=== PATIENT | female | born 1975 | race Caucasian/White ===

== ENCOUNTER 2017-12-13 15:10 | Inpatient (IN) | payer OTHER ==
[~2017-12-13] VITALS: Ht 175.3 cm; Wt 91.8 kg
[2017-12-13] VITALS (11 sets, daily range): BP systolic 137–203; BP diastolic 78–104; PULSE 58–99; RESP 13–22; TEMP 97.9–98.4; O2SAT 95–100
[2017-12-13] MEDS ORDERED: CYCL5TAB PO (15:55)
[2017-12-13] MEDS ORDERED: KETO10 PO (15:55)
[2017-12-13] MEDS ORDERED: METO10TA PO (15:55)
[2017-12-13] MEDS ORDERED: TOPI50TA7 PO (15:55)
[2017-12-13] MEDS ORDERED: BUTA1CAP PO (15:55)
[2017-12-13] MEDS ORDERED: PROPOFOL 200 MG/20 ML AMP IV ONE (16:15)
[2017-12-13] MEDS ORDERED: HYDROmorphone HCL PF 1 MG/ML VIAL IV PUSH ONE (16:15)
--- NOTE | 2017-12-13 16:32 | PD ---
HPI Chief Complaint: Headache Time Seen by Provider: 15:59 Travel History International Travel<30 days: No Contact w/Intl Traveler<30days: No Traveled to known affect area: No History of Present Illness HPI 42-year-old female complains of headache. She has had a headache essentially continuously for about 7 weeks. She has been admitted to inpatient medical care at outside hospitals and has received some benefit from Compazine and Toradol. Still the headache is essentially generalized with some involvement to the neck and now continues for 1 week and severe. The patient reports insomnia due to cephalgia severity of the pain. She is followed with neurology and undergone CT of the head and MRI of the head all of which is been normal. Her primary care doctor called ahead noting the patient has developed suicidal ideations due to the continuous pain. [facility] Past Medical History Anxiety: Yes Diminished Hearing: Yes (VERTIGO/ALTERED HEARING SINCE MIGRAINES STARTED IN OCTOBER 2017) Headaches: Yes Migraines: Yes ?: Not LMP: 12/02/17 Past Surgical History Cholecystectomy: Yes Gynecologic Surgery: Yes (MYOMECTOMY) Other Surgery: Yes (OVARIAN CYST REMOVED/ MYOMECTOMY) Social History Alcohol Use: No Tobacco Use: No Substance Use: No Allergies-Medications (Allergen,Severity, Reaction): Coded Allergies: fentanyl (Verified Allergy, Severe, 12/13/17) latex (Verified Allergy, Severe, Rash, 12/13/17) tramadol (Verified Allergy, Severe, Twitching, 12/13/17) TREMORS Reported Meds & Prescriptions Reported Meds & Active Scripts Active Reported Topiramate 50 Mg Tab 50 Mg PO HS Flexeril (Cyclobenzaprine HCl) 5 Mg Tab 5 Mg PO BID Metoclopramide (Metoclopramide HCl) 10 Mg Tab 10 Mg PO BID Ketorolac (Ketorolac Tromethamine) 10 Mg Tab 10 Mg PO TID Fioricet (Oftmyjebpk-Buskmbybmpqjf-Cczvxaiq) 50-300-40 Mg Cap 2 Cap PO Q4H PRN Review of Systems Except as stated in HPI: all other systems reviewed are Neg General / Constitutional: No: Fever Physical Exam Narrative GENERAL: 42 F moderate distress WNWD Vital Signs Date Time Temp Pulse Resp B/P (MAP) Pulse Ox O2 Delivery O2 Flow Rate FiO2 12/13/17 16:00 98 Room Air 12/13/17 16:00 74 14 158/103 (121) 99 Room Air 12/13/17 15:35 98.4 99 22 203/104 (137) 100 SKIN: Warm and dry. HEAD: Atraumatic. Normocephalic. EYES: Pupils equal and round. No scleral icterus. No injection or drainage. ENT: No nasal bleeding or discharge. Mucous membranes pink and moist. NECK: Trachea midline. No JVD. CARDIOVASCULAR: Regular rate and rhythm. RESPIRATORY: No accessory muscle use. Clear to auscultation. Breath sounds equal bilaterally. GASTROINTESTINAL: Abdomen soft, non-tender, nondistended. Hepatic and splenic margins not palpable. MUSCULOSKELETAL: Extremities without clubbing, cyanosis, or edema. No obvious deformities. NEUROLOGICAL: Awake and alert. No obvious cranial nerve deficits. Motor grossly within normal limits. Five out of 5 muscle strength in the arms and legs. Normal speech. PSYCHIATRIC: Appropriate mood and affect; insight and judgment normal. Data Data Last Documented VS Vital Signs Date Time Temp Pulse Resp B/P (MAP) Pulse Ox O2 Delivery O2 Flow Rate FiO2 12/13/17 18:00 60 14 165/91 (115) 97 Room Air 12/13/17 17:02 2.00 12/13/17 15:35 98.4 Orders Orders Complete Blood Count With Diff (12/13/17 15:59) Basic Metabolic Panel (Bmp) (12/13/17 15:59) Ecg Monitoring (12/13/17 15:59) Iv Access Insert/Monitor (12/13/17 15:59) Oximetry (12/13/17 15:59) Hydromorphone Pf Inj (Dilaudid Pf Inj) (12/13/17 16:15) Propofol 200 Mg/20 Ml Inj (Diprivan 200 (12/13/17 16:15) Hydromorphone Pf Inj (Dilaudid Pf Inj) (12/13/17 16:35) Ondansetron Inj (Zofran Inj) (12/13/17 16:42) Hydromorphone Pf Inj (Dilaudid Pf Inj) (12/13/17 17:00) Ondansetron Inj (Zofran Inj) (12/13/17 17:00) Consent (12/13/17 17:30) ^ Have Supplies At Bedside (12/13/17 17:30) Westergren Sedimentation Rate (12/13/17 17:43) Admit Order (Ed Use Only) (12/13/17 ) Vital Signs (Adult) Q4H (12/13/17 18:01) Diet Heart Healthy (12/13/17 Dinner) Activity Bed Rest (12/13/17 18:01) Notify Dr: Other (12/13/17 18:01) Labs Laboratory Tests Test 12/13/17 16:09 White Blood Count 7.9 TH/MM3 Red Blood Count 5.10 MIL/MM3 Hemoglobin 15.3 GM/DL Hematocrit 44.5 % Mean Corpuscular Volume 87.3 FL Mean Corpuscular Hemoglobin 30.0 PG Mean Corpuscular Hemoglobin Concent 34.3 % Red Cell Distribution Width 13.2 % Platelet Count 348 TH/MM3 Mean Platelet Volume 7.8 FL Neutrophils (%) (Auto) 59.4 % Lymphocytes (%) (Auto) 31.1 % Monocytes (%) (Auto) 7.9 % Eosinophils (%) (Auto) 1.1 % Basophils (%) (Auto) 0.5 % Neutrophils # (Auto) 4.7 TH/MM3 Lymphocytes # (Auto) 2.4 TH/MM3 Monocytes # (Auto) 0.6 TH/MM3 Eosinophils # (Auto) 0.1 TH/MM3 Basophils # (Auto) 0.0 TH/MM3 CBC Comment DIFF FINAL Differential Comment Erythrocyte Sedimentation Rate 1 mm/hr Blood Urea Nitrogen 10 MG/DL Creatinine 0.70 MG/DL Random Glucose 82 MG/DL Calcium Level 9.1 MG/DL Sodium Level 141 MEQ/L Potassium Level 3.7 MEQ/L Chloride Level 109 MEQ/L Carbon Dioxide Level 21.4 MEQ/L Anion Gap 11 MEQ/L Estimat Glomerular Filtration Rate 91 ML/MIN MDM Medical Decision Making Medical Screen Exam Complete: Yes Emergency Medical Condition: Yes Medical Record Reviewed: Yes Differential Diagnosis migraine, ICH, anurysm Narrative Course CBC & BMP Diagram 12/13/17 16:09 Calcium Level 9.1 The patient received propofol sedation which treated her headache and for the first time 7 weeks was headache free. [place] Act form completed for the patient by request of the psychiatrist. Case discussed with Dr. Betancourt of psych who agrees [facility] psychiatry is the optimal disposition. Case discussed with Dr. Boyle for hospitalist service. Procedures Procedure Narrative After the risks and benefits were discussed the following procedure was performed: MODERATE SEDATION: The patient was placed on a perinatal instructor and pulse oximetry. An ambu bag and suction was immediately available at bedside. The patient was monitored by the nurse. Oxygen saturation , heart rate and blood pressure were monitored. Procedural sedation was acheived using propofol. The patient was observed until awake and alert. Procedural Sedation time in attendance was 15 minutes. Diagnosis Primary Impression: Intractable headache Qualified Codes: R51 - Headache Additional Impression: Suicidal ideation Admitting Information Admitting Physician Requests: Drew Post MD Dec 13, 2017 16:32
[2017-12-13] MEDS ORDERED: HYDROmorphone HCL PF 2 MG/ML VIAL ONE (16:35)
[2017-12-13] MEDS ORDERED: ONDANSETRON HCL 4 MG/2 ML VIAL ONE (16:42)
[2017-12-13 16:53] LABS: AUTOMATED NEUTROPHIL # 4.7 TH/MM3 (1.8-7.7); BASOPHIL % 0.5 % (0.0-2.0); EOSINOPHIL # 0.1 TH/MM3 (0-0.4); EOSINOPHIL % 1.1 % (0.0-4.0); HEMATOCRIT 44.5 % (35.0-46.0); HEMOGLOBIN 15.3 GM/DL (11.6-15.3); LYMPH % 31.1 % (9.0-44.0); LYMPHOCYTE # 2.4 TH/MM3 (1.0-4.8); MEAN CELL VOLUME 87.3 FL (80.0-100.0); MEAN CORPUSCULAR HGB CONC 34.3 % (32.0-36.0); MEAN PLATELET VOLUME 7.8 FL (7.0-11.0); MONO % 7.9 % (0.0-8.0); MONOCYTE # 0.6 TH/MM3 (0-0.9); NEUT % 59.4 % (16.0-70.0); PLATELET COUNT 348 TH/MM3 (150-450); RED CELL DISTRIBUTION WIDTH 13.2 % (11.6-17.2); WHITE BLOOD COUNT 7.9 TH/MM3 (4.0-11.0)
[2017-12-13] MEDS ORDERED: ONDANSETRON HCL 4 MG/2 ML VIAL IV PUSH ONE (17:00)
[2017-12-13] MEDS ORDERED: HYDROmorphone HCL PF 2 MG/ML VIAL IV PUSH ONE (17:00)
[2017-12-13 17:22] LABS: BICARBONATE 21.4 MEQ/L (21.0-32.0); CALCIUM 9.1 MG/DL (8.5-10.1); CREATININE 0.7 MG/DL (0.50-1.00)
[2017-12-13] MEDS ORDERED: ACETAMIN 325 MG/BUTALBITAL 50 MG/CAFFEINE 40 MG TAB PO PRN (22:00)
[2017-12-13] MEDS ORDERED: ACETAMINOPHEN 325 MG TAB PO PRN (22:00)
[2017-12-13] MEDS: METOCLOPRAMIDE HCL 10 MG TAB PO SCH (22:00)
[2017-12-13] MEDS ORDERED: MAGNESIUM HYDROXIDE SUSP 30 ML CUP PO PRN (22:00)
[2017-12-13] MEDS ORDERED: ALUMINUM/MAGNESIUM/SIMETH 30 ML CUP PO PRN (22:00)
[2017-12-13] MEDS: CYCLOBENZAPRINE HCL 10 MG TAB PO SCH (22:00)
[2017-12-13] MEDS ORDERED: PILL SPLITTER OTHER PRN (22:45)
[2017-12-14 01:04] VITALS: BP 126/73; PULSE 68
[2017-12-14 04:27] VITALS: BP 132/65; PULSE 65; RESP 16; TEMP 98.5; O2SAT 98
[2017-12-14] MEDS: METOCLOPRAMIDE HCL 10 MG TAB PO SCH ×2 (09:00→21:00)
[2017-12-14] MEDS: CYCLOBENZAPRINE HCL 10 MG TAB PO SCH ×2 (09:00→21:00)
[2017-12-14] MEDS: KETOROLAC TROMETHAMINE 10 MG TAB PO SCH ×3 (09:00→17:26)
--- NOTE | 2017-12-14 13:22 | PD.CONS ---
HPI Service [facility] Hospitalists Consult Requested By Psychiatry Reason for Consult Headache Primary Care Physician Unknown Diagnoses: History of Present Illness Ms. Packer is a pleasant 42-year-old female with no significant medical history who was admitted to the hospital due to headache. Due to significant headaches she also expressed suicidal ideations. Patient was subsequently admitted to med psych unit. She also complains of dizziness along with headache. Her headache has been persistent despite multiple outpatient and inpatient therapy. Due to headache she is unable to sleep and has not slept well in 7-10 days. She denies any chest pain, cough, shortness of breath , fever or chills. She also complains of left wrist pain which is better after she received Toradol. Denies any injury to her wrist. Palpation she underwent CT and MRI study of her head at an outside facility and her workup was unremarkable. Hospitalist service was consulted as well as neurology for further evaluation. Review of Systems Except as stated in HPI: all other systems reviewed are Neg Past Family Social History Allergies: Coded Allergies: fentanyl (Verified Allergy, Severe, 12/13/17) latex (Verified Allergy, Severe, Rash, 12/13/17) tramadol (Verified Allergy, Severe, Twitching, 12/13/17) TREMORS Past Medical History Anxiety, migraine headache Past Surgical History Myomectomy, oophorectomy, cholecystectomy Reported Medications Topiramate 50 Mg Tab 50 Mg PO HS Flexeril (Cyclobenzaprine HCl) 5 Mg Tab 5 Mg PO BID Metoclopramide (Metoclopramide HCl) 10 Mg Tab 10 Mg PO BID Ketorolac (Ketorolac Tromethamine) 10 Mg Tab 10 Mg PO TID Fioricet (Tkyerfrncw-Glufgcskyudot-Viollzfd) 50-300-40 Mg Cap 2 Cap PO Q4H PRN Family History Father diagnosed with lung cancer. He also has a history of prostate cancer. Social History Denies using alcohol, tobacco, illicit drugs. Physical Exam Vital Signs Vital Signs Date Time Temp Pulse Resp B/P (MAP) Pulse Ox O2 Delivery O2 Flow Rate FiO2 12/14/17 04:27 98.5 65 16 132/65 (87) 98 12/14/17 01:04 68 126/73 (90) 12/13/17 21:46 97.9 61 16 137/78 (97) 99 12/13/17 19:55 12/13/17 19:21 70 16 155/87 (109) 99 Room Air 12/13/17 18:15 62 14 167/100 (122) 98 Room Air 12/13/17 18:00 60 14 165/91 (115) 97 Room Air 12/13/17 17:45 58 14 156/90 (112) 96 Room Air 12/13/17 17:30 60 14 164/91 (115) 96 Room Air 12/13/17 17:03 58 14 138/80 (99) 95 Room Air 12/13/17 17:02 98 2.00 12/13/17 17:02 98 Nasal Cannula 2.00 12/13/17 17:02 12 12/13/17 17:02 98 12/13/17 16:47 61 13 163/84 (110) 100 Nasal Cannula 3.00 12/13/17 16:00 98 Room Air 12/13/17 16:00 74 14 158/103 (121) 99 Room Air 12/13/17 15:35 98.4 99 22 203/104 (137) 100 Physical Exam GENERAL: This is a well-nourished, well-developed patient, in no apparent distress. SKIN: No rashes, ecchymoses or lesions. Warm and dry. HEAD: Atraumatic. Normocephalic. No temporal or scalp tenderness. EYES: Pupils equal round and reactive. No injection or drainage. ENT: Nose without bleeding, purulent drainage or septal hematoma. Airway patent. NECK: Trachea midline. No lymphadenopathy. Supple, nontender, no meningeal signs. CARDIOVASCULAR: Regular rate and rhythm without murmurs, gallops, or rubs. No JVD. RESPIRATORY: Clear to auscultation. Breath sounds equal bilaterally. No wheezes , rales, or rhonchi. GASTROINTESTINAL: Abdomen soft, non-tender, nondistended. No guarding. MUSCULOSKELETAL: Extremities without clubbing, cyanosis, or edema. NEUROLOGICAL: Awake and alert. Cranial nerves II through XII intact. No focal neurological deficits. Normal speech. Laboratory Laboratory Tests Test 12/13/17 16:09 White Blood Count 7.9 Red Blood Count 5.10 Hemoglobin 15.3 Hematocrit 44.5 Mean Corpuscular Volume 87.3 Mean Corpuscular Hemoglobin 30.0 Mean Corpuscular Hemoglobin Concent 34.3 Red Cell Distribution Width 13.2 Platelet Count 348 Mean Platelet Volume 7.8 Neutrophils (%) (Auto) 59.4 Lymphocytes (%) (Auto) 31.1 Monocytes (%) (Auto) 7.9 Eosinophils (%) (Auto) 1.1 Basophils (%) (Auto) 0.5 Neutrophils # (Auto) 4.7 Lymphocytes # (Auto) 2.4 Monocytes # (Auto) 0.6 Eosinophils # (Auto) 0.1 Basophils # (Auto) 0.0 CBC Comment DIFF FINAL Differential Comment Erythrocyte Sedimentation Rate 1 Blood Urea Nitrogen 10 Creatinine 0.70 Random Glucose 82 Calcium Level 9.1 Sodium Level 141 Potassium Level 3.7 Chloride Level 109 Carbon Dioxide Level 21.4 Anion Gap 11 Estimat Glomerular Filtration Rate 91 Beta HCG, Qualitative 2 Result Diagram: 12/13/17 1609 12/13/17 1609 Assessment and Plan Problem List: (1) Intractable headache ICD Code: R51 - Headache Status: Acute (2) Left wrist pain ICD Code: M25.532 - Pain in left wrist (3) Suicidal ideation ICD Code: R45.851 - Suicidal ideations Status: Acute Assessment and Plan Ms. Packer is a 42-year-old female who was admitted to [facility] due to suicidal ideations that stemmed from intractable headache. Despite evaluation by outpatient and inpatient physicians, her headache still is very persistent. She additionally complains of left wrist pain. Neurology and hospitalist service were consulted. Intractable headache -No previous history of headache. Palpation CT and MRI studies of the brain were unremarkable at an outside facility. -Neurology consult pending. Patient may need further workup including spinal imaging as well as possibly LP. -Currently she has Flexeril, Toradol, furosemide as needed. -Continue Topamax 50 mg nightly Insomnia -patient will receive Seroquel 50 mg nightly and Restoril 7.5 mg nightly. Suicidal ideations -likely due to headache. Continue treatment per psychiatry. Full code. Ambulation. Thank you for the consult. We will continue to follow this patient with you. Problem Qualifiers (1) Intractable headache: Qualified Codes: R51 - Headache Edwin Hendricks DO December 14, 2017 1:22 pm
--- NOTE | 2017-12-14 13:53 | PD.CONS ---
History of Present Illness Service Neurology Consult Requested By psychiatry Reason for Consult chronic migraines Primary Care Physician Unknown History of Present Illness 42 y/o female who has had monthly opthalmic migraines for the last 8-10 years, lasting about 20 minutes. Would involve scotoma in the right eye. In early October she had an episode of Vertigo while on a conference call and then persistent dizziness. She notes that about a week later she began having severe headache. She also had numbness involving her face. She was seen by a neurologist and had a negative CT and MRI of the head. She had trial of Imitrex during the migraine without benefit. She was started on Topamax. This week she was to increase from 50mg bid to 100mg bid. No side effects but no benefit on the Topamax. She has not tried any other preventative medications for her migraines. Reports pain was so severe it caused insomnia. Also associated nausea. She has tried Toradol and Fioricet without benefit. No recent illness. No benefit with Medrol dose pack, felt it worsened headache. No benefit with Fentanyl. [place] Trazodone worsened her headache as well. She reports she has lost about 25lbs in the last 6 weeks due to her headache. Notes blurred vision in the right eye with pressure behind the left eye. Reports she began having suicidal thoughts due to lack of sleep and has been admitted to psychiatry. Reports PCP checked thyroid recently and labs were WNL. Nurse states they are obtaining records from her neurologist, PCP and previous hospital stay (Norma Boyle) Review of Systems Constitutional: Fatigue Eye: Blurring Respiratory: Negative except HPI Cardiovascular: Negative except HPI Gastrointestinal: Nausea, Vomitting Cipriano/Lymph: Negative except HPI Musculoskeletal: Negative except HPI Neurologic: Numbness, Tingling, Headache Psychiatric: Depression, Suicidal All other ROS: ROS reviewed as documented in chart (Norma Boyle) Past Family Social History Allergies: Coded Allergies: fentanyl (Verified Allergy, Severe, 12/13/17) latex (Verified Allergy, Severe, Rash, 12/13/17) tramadol (Verified Allergy, Severe, Twitching, 12/13/17) TREMORS Past Medical History opthalmic migraines, anxiety, depression, insomnia Past Surgical History cholecystectomy, gynecological surgeries Active Ordered Medications Current Medications Medications (Trade) Dose Ordered Sig/Zackery Route Start Time Stop Time Status Last Admin (Tylenol) 650 mg Q4H PRN PO 12/13/17 22:00 12/13/17 22:44 (Milk Of Magnesia Liq) 30 ml DAILY PRN PO 12/13/17 22:00 (Mag-Al Plus Susp Liq) 30 ml Q6H PRN PO 12/13/17 22:00 (Fioricet 325-50-40) 2 tab Q4H PRN PO 12/13/17 22:00 12/14/17 01:45 (Flexeril) 5 mg BID PO 12/13/17 22:00 12/14/17 09:00 (Toradol) 10 mg TID PO 12/14/17 09:00 12/14/17 13:00 (Reglan) 10 mg BID PO 12/13/17 22:00 (Topamax) 50 mg HS PO 12/14/17 21:00 (Pill Splitter) 1 ea UNSCH PRN OTHER 12/13/17 22:45 (SEROquel) 50 mg HS PO 12/14/17 21:00 (Restoril) 7.5 mg HS PRN PO 12/14/17 12:00 (Topamax) 50 mg DAILY PO 12/14/17 13:30 UNV (Topamax) 100 mg HS NEB PO 12/14/17 21:00 UNV Family History noncontributory Social History former smoker, rare alcohol (Norma Boyle) Exam I&O / VS Vital Signs Date Time Temp Pulse Resp B/P (MAP) Pulse Ox O2 Delivery O2 Flow Rate FiO2 12/14/17 04:27 98.5 65 16 132/65 (87) 98 12/14/17 01:04 68 126/73 (90) 12/13/17 21:46 97.9 61 16 137/78 (97) 99 12/13/17 19:55 12/13/17 19:21 70 16 155/87 (109) 99 Room Air 12/13/17 18:15 62 14 167/100 (122) 98 Room Air 12/13/17 18:00 60 14 165/91 (115) 97 Room Air 12/13/17 17:45 58 14 156/90 (112) 96 Room Air 12/13/17 17:30 60 14 164/91 (115) 96 Room Air 12/13/17 17:03 58 14 138/80 (99) 95 Room Air 12/13/17 17:02 98 2.00 12/13/17 17:02 98 Nasal Cannula 2.00 12/13/17 17:02 12 12/13/17 17:02 98 12/13/17 16:47 61 13 163/84 (110) 100 Nasal Cannula 3.00 12/13/17 16:00 98 Room Air 12/13/17 16:00 74 14 158/103 (121) 99 Room Air 12/13/17 15:35 98.4 99 22 203/104 (137) 100 General: Alert and Oriented, No acute distress Eye: PERRL, EOMI Respiratory: Non-labored respirations Cardiology: Normal rate Musculoskeletal: ROM Exam Comments eomi, no nystagmus, perrl, no temporal artery tenderness, f-n-f intact, coordination normal, muscle strength 5/5, no drift, no focal deficit, gait withheld (Norma Boyle) Review/Management Diagnosis/Plan: (1) Migraine aura, persistent, intractable ICD Codes: G43.519 - Persistent migraine aura without cerebral infarction, intractable, without status migrainosus Status: Chronic Plan: requesting MRI from previous hospital stay will set up MRA/MRV consider LP with opening pressure increase Topamax to 50mg qam and 100mg qhs (2) Insomnia ICD Codes: G47.00 - Insomnia, unspecified Status: Chronic Plan: psychiatry has started Temazepam and Seroquel could consider trial of Pamelor for both migraines and sleep (3) Dizziness ICD Codes: R42 - Dizziness and giddiness Plan: MRA, MRV ordered vertigo may be related to migraine aura consider eval by PT (4) Intractable headache ICD Codes: R51 - Headache Status: Acute Plan: ESR 1 MRA/MRV consider LP with opening pressure (Norma Boyle) Diagnosis/Plan: (1) Migraine aura, persistent, intractable ICD Codes: G43.519 - Persistent migraine aura without cerebral infarction, intractable, without status migrainosus Status: Chronic Plan: requesting MRI from previous hospital stay will set up MRA/MRV increase Topamax to 50mg qam and 100mg qhs imitrex im prn qdaily for severe migraine seen and examined. d/w PA. agree with above. chronic intractable migraines followed by an outpatient neurologist and has been hospitalized for them at [facility]. fioricet prn, imitrex injection for severe headache. will need to f/u with her neurologist after psychiatric admission for further eval/tx and consideration of botox. chronic insomnia also likely affecting migraine in addition to depression. psych has ordered seroquel which may help sleep and her mood. (Yong Weston MD) Problem Qualifiers (1) Intractable headache: Qualified Codes: R51 - Headache Norma Boyle December 14, 2017 13:53 Yong Weston MD December 14, 2017 17:23
[2017-12-14 14:38] LABS: MAGNESIUM 2.4 MG/DL (1.5-2.5)
[2017-12-14] MEDS: LORazepam 1 MG TAB PO PRN ×2 (15:00→20:53)
[2017-12-14] MEDS: TOPIRAMATE 25 MG TAB PO SCH (15:00)
[2017-12-14 15:03] LABS: FOLATE 11.4 NG/ML (3.1-17.5)
[2017-12-14] MEDS ORDERED: GADODIAMIDE PF 287 MG/ML 20 ML VIAL (for RAD MRI) IVCONTRAST ONE (15:44)
--- NOTE | 2017-12-14 16:36 | RADRPT ---
EXAM DATE/TIME: 12/14/2017 15:28 [place] COMPARISON: No previous studies available for comparison. INDICATIONS : Vertigo. Migraine and facial numbness with nerve pain. MEDICAL HISTORY : None. SURGICAL HISTORY : Cholecystectomy. Fibroids removed. Oophrectomy. ENCOUNTER: Initial ACUITY: 1 month PAIN SCORE: 5/10 LOCATION: head. Please note a normal MRA of the brain does not entirely exclude the possibility of a small aneurysm, nor the possibility of distal intracranial vessel disease. TECHNIQUE: 3D time of flight MRA was performed. Source images, multiplanar STS MIP, and 3D volume MIP reconstru ctions were reviewed. FINDINGS: Anterior circulation: Distal intracranial internal carotid arteries are patent with flow extending to the middle and anteri or cerebral arteries. 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 There is no evidence for aneurysm, vessel tr uncation or stenosis, and no evidence for vascular malformation. Posterior circulation: Asymmetrical distal vertebral arteries with dominant left vertebral artery and flow extending to basi lar artery. Right vertebral artery appears to terminate in PICA. Patent right P-comm. There is no ev idence for aneurysm, vessel truncation or stenosis, and no evidence for vascular malformation. CONCLUSION: 1. 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 2. Otherwise, unremarkable MRA examination of the brain. Abram Carolina MD on December 14, 2017 at 16:33 Board Certified Radiologist. This report was verified electronically.
--- NOTE | 2017-12-14 16:38 | HHI.HP ---
Provisional Diagnosis Admission Date Dec 13, 2017 at 18:03 [place] I. Adjustment disorder with depressed mood Certification of Person's Competence To Provide Express and Informed Consent I have personally examined Sadia Packer , a person being served at [facility] on, December 14, 2017 16:18. Express and informed consent means consent voluntarily given in writing, by a competent person, after sufficient explanation and disclosure of the subject matter involved to enable the person to make a knowing and willful decision without any element of force, fraud, deceit, duress, or other form of constraint or coercion. This person is 18 years of age or older, is not now known to be incompetent to consent to treatment with a guardian advocate, and does not have a health care surrogate or proxy currently making medical treatment decisions. I have found this person to be one of the following: [xxx] Competent to provide express and informed consent, as defined above, for voluntary admission to this facility and is competent to provide express and informed consent for treatment. He/she has the consistent capacity to make well reasoned, willful, and knowing decisions concerning his or her medical or mental health treatment. The person fully and consistently understands the purpose of the admission for examination/placement and is fully capable of personally exercising all rights assured under [place] Incompetent to provide express and informed consent to voluntary admission, and this is incompetent to provide express and informed consent to treatment. The person must be transferred to involuntary status and a petition for a guardian advocate filed with the Circuit Court. [] Refusing to provide express and informed consent to voluntary admission but is competent to provide express and informed consent for treatment. The person must be discharged or transferred to involuntary status. Form shall be completed within 24 hours of a person's arrival at the receiving facility and filed in the clinical record of each person: 1. Admitted on a voluntary basis 2. Permitted to provide express and informed consent to his/her own treatment 3. Allowed to transfer from involuntary to voluntary status 4. Prior to permitting a person to consent to his or her own treatment after having been previously found incompetent to consent to treatment. History of Present Illness Capacity: Has Capacity HPI Patient is a 42-year-old woman, , no children, unemployed, with no formal past psychiatric history, no previous diagnoses, no previous psychiatric admissions, no previous suicide attempts or self-injurious behavior , with a past medical history significant for irretractable migraines was brought into the ED due to continuous headaches for the past several weeks and had endorse suicide ideations to her primary care doctor due to continuous pain from her headaches which patient was put under [place] act and admitted to the inpatient psychiatry for further evaluation and management. Patient was found lying on bed noted B, cooperative. Patient states that she had been having irretractable headaches since October of this year. Patient reports having had ophthalmic migraines for the past 8-10 years but the headache started in October. Patient reports having had imaging done (MRI was (which she was told was normal. Patient also mentions having had insomnia beginning around the same time along with increased anxiety due to sleep disturbance. Patient reports having been on Ambien, trazodone, diazepam which has had marginal results or intolerable side effects which is hallucinations when she took trazodone. Patient reports having had episodes of decrease sleep for as long as 3 days, mood being "very bad" feeling depressed due to the same and having had suicide ideations for the past 3 days which occur mostly at night. Patient also reports episode of depersonalization where she did not recognize himself in the mirror and also had episodes of auditory hallucinations at times which she heard singing. Patient at this time continues to endorse feeling depressed, having suicide ideations currently denying any auditory hallucinations at time of interview or delusions. Past psychiatric history: No previous psychiatric diagnoses, no psychiatric admissions, no previous suicide attempt or self-injurious behavior. No previous mental health provider services other than brief course of therapy. Substance use history: Denies Past medical history: Patient reports history of retractable migraines since October 2017. 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 Patient's collateral contacts patient's Jesse Valiente [phone]. Review of Systems Neurologic: COMPLAINS OF: Headache Except as stated in HPI: all other systems reviewed are Neg Past Psych History Violence risk - others (6 mos) Low Violence risk - self (6 mos) Low Substance Abuse History Drugs/Alcohol past 12 months Denies Past Family Social History Coded Allergies: fentanyl (Verified Allergy, Severe, 12/13/17) latex (Verified Allergy, Severe, Rash, 12/13/17) tramadol (Verified Allergy, Severe, Twitching, 12/13/17) TREMORS Reported Medications Topiramate (Topiramate) 50 Mg Tab, 50 MG PO HS for Control Seizures, #60 TAB 0 Refills 12/13/17 Cyclobenzaprine (Flexeril) 5 Mg Tab, 5 MG PO BID for Muscle Spasm, #90 TAB 0 Refills 12/13/17 Metoclopramide (Metoclopramide) 10 Mg Tab, 10 MG PO BID, TAB 0 Refills 12/13/17 Ketorolac (Ketorolac) 10 Mg Tab, 10 MG PO TID for Pain Management, TAB 0 Refills 12/13/17 Nhtusydeue-Rarcyrekbonyd-Eqpyaxyr (Fioricet) 50-300-40 Mg Cap, 2 CAP PO Q4H Y for HEADACHE, CAP 0 Refills 12/13/17 Current Medications Medications (Trade) Dose Ordered Sig/Zackery Route Start Time Stop Time Status Last Admin (Tylenol) 650 mg Q4H PRN PO 12/13/17 22:00 12/13/17 22:44 (Milk Of Magnesia Liq) 30 ml DAILY PRN PO 12/13/17 22:00 (Mag-Al Plus Susp Liq) 30 ml Q6H PRN PO 12/13/17 22:00 (Fioricet 325-50-40) 2 tab Q4H PRN PO 12/13/17 22:00 12/14/17 01:45 (Flexeril) 5 mg BID PO 12/13/17 22:00 12/14/17 09:00 (Toradol) 10 mg TID PO 12/14/17 09:00 12/14/17 13:00 (Reglan) 10 mg BID PO 12/13/17 22:00 (Pill Splitter) 1 ea UNSCH PRN OTHER 12/13/17 22:45 (SEROquel) 50 mg HS PO 12/14/17 21:00 (Restoril) 7.5 mg HS PRN PO 12/14/17 12:00 (Topamax) 50 mg DAILY PO 12/14/17 15:00 12/14/17 15:00 (Topamax) 100 mg HS PO 12/14/17 21:00 (Ativan) 1 mg Q6H PRN PO 12/14/17 14:15 12/14/17 15:00 Social History , no children, 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 Patient's collateral contacts patient' s Jesse Valiente [phone]. Patient's Strengths (min. 2) Verbal and communicative Physical Exam Vital Signs Vital Signs Date Time Temp Pulse Resp B/P (MAP) Pulse Ox O2 Delivery O2 Flow Rate FiO2 12/14/17 04:27 98.5 65 16 132/65 (87) 98 12/13/17 19:21 Room Air 12/13/17 17:02 2.00 I/O 12/14/17 12/14/17 12/15/17 08:00 16:00 00:00 Intake Total 240 ml Balance 240 ml Lab Results Test 12/14/17 13:58 Magnesium Level 2.4 MG/DL Vitamin B12 Level 637 PG/ML Folate 11.4 NG/ML Mental Status Examination Appearance: Appropriate Consciousness: Alert Orientation: x4 Speech: Unremarkable Language: Adequate Fund of Knowledge: Adequate Attention and Concentration: Adequate Memory: Unremarkable Mood: Sad Affect: Sad, Other (Tearful) Thought Process & Associations: Intact, Logical, Linear Thought Content: Hallucinations, Depersonalization Hallucination Type: Auditory Delusion Type: None Suicidal Ideation: Yes Suicidal Plan: No Suicidal Intention: No Homicidal Ideation: No Homicidal Plan: No Homicidal Intention: No Insight: Fair Judgment: Impulsive Assessment & Plan Problem List: (1) Adjustment disorder with mixed anxiety and depressed mood ICD Codes: F43.23 - Adjustment disorder with mixed anxiety and depressed mood Assessment & Plan Estimated LOS: 5-7 days. Patient is a 42-year-old woman with no previous psychiatric admission with a recent diagnosis of intractable migraines that have been ongoing which have caused patient to have disturbed sleep along with start of suicidal ideations for the past 3 days which patient was admitted to the inpatient psychiatry unit for further evaluation and management. Patient will be started on quetiapine 50 mg p.o. at bedtime to address depressed mood along with perceptual disturbances, temazepam 7.5 mg p.o. at bedtime as needed for insomnia, hospitalist input appreciated, neurology input appreciated. Patient to continue recommendations as her prior medical team and neurology configuration management consultant recommendations. Collateral information pending. Social work intervention for psychosocial assessment. Discharge planning in progress. Discharge Planning Patient return back to her residence was psychiatrically stable. Jared Wong MD December 14, 2017 16:38
--- NOTE | 2017-12-14 16:44 | RADRPT ---
EXAM DATE/TIME: 12/14/2017 15:28 COMPARISON: No previous studies available for comparison. INDICATIONS : Vertigo. Migraine and facial numbness with nerve pain. CONTRAST: 20 cc Omniscan (gadodiamide) IV MEDICAL HISTORY : None. SURGICAL HISTORY : Cholecystectomy. Fibroids removed. Oophrectomy. ENCOUNTER: Initial ACUITY: 1 month PAIN SCORE: 7/10 LOCATION: head. TECHNIQUE: 3D time of flight and postcontrast MRV was performed. Source images, multiplanar STS MIP, and 3D volu me MIP reconstructions were reviewed. FINDINGS: The visualized dural and deep venous sinuses demonstrate normal flow characteristics. No obvious veno us thrombosis is evident on this exam. CONCLUSION: 1. Unremarkable MR venogram examination. No evidence for significant venous thrombosis. Abram Carolina MD on December 14, 2017 at 16:40 Board Certified Radiologist. This report was verified electronically.
[2017-12-14 17:02] LABS: C-REACTIVE PROTEIN LESS THAN 0.29 MG/DL (0.00-0.30)
[2017-12-14] MEDS ORDERED: SUMAtriptan INJ 6 MG/0.5 ML VIAL SQ PRN (17:30)
[2017-12-14 18:12] VITALS: BP 114/56; PULSE 64; RESP 16; TEMP 98.6; O2SAT 97
[2017-12-14 18:28] LABS: HEMOGLOBIN A1C 5.1 % (4.3-6.0)
[2017-12-14] MEDS: TEMAZEPAM 7.5 MG CAP PO PRN (20:52)
[2017-12-14] MEDS: TOPIRAMATE 100 MG TAB PO SCH (20:52)
[2017-12-14] MEDS ORDERED: TOPIRAMATE 25 MG TAB PO SCH (21:00)
[2017-12-14] MEDS ORDERED: QUEtiapine FUMARATE 25 MG TAB PO SCH (21:00)
[2017-12-15 06:14] VITALS: BP 109/57; PULSE 60; RESP 15; TEMP 97.3; O2SAT 98
[2017-12-15] MEDS: KETOROLAC TROMETHAMINE 10 MG TAB PO SCH ×3 (09:05→17:37)
[2017-12-15] MEDS: CYCLOBENZAPRINE HCL 10 MG TAB PO SCH ×2 (09:06→20:51)
[2017-12-15] MEDS: METOCLOPRAMIDE HCL 10 MG TAB PO SCH ×2 (09:06→20:51)
[2017-12-15] MEDS: TOPIRAMATE 25 MG TAB PO SCH (09:11)
--- NOTE | 2017-12-15 09:37 | HHI.PR ---
Review/Management Diagnosis/Plan: (1) Migraine aura, persistent, intractable ICD Codes: G43.519 - Persistent migraine aura without cerebral infarction, intractable, without status migrainosus Status: Chronic Plan: mra/mrv- negative for any significant vascular occlusion increase Topamax to 50mg qam and 100mg qhs imitrex im prn qdaily for severe migraine chronic intractable migraines followed by an outpatient neurologist and has been hospitalized for them at [facility]. fioricet prn, imitrex injection for severe headache. will need to f/u with her neurologist after psychiatric admission for further eval/tx and consideration of botox. chronic insomnia also likely affecting migraine in addition to depression. psych has ordered seroquel which may help sleep and her mood. will follow peripherally (2) Insomnia ICD Codes: G47.00 - Insomnia, unspecified Status: Chronic Plan: psychiatry has started Temazepam and Seroquel could consider trial of Pamelor for both migraines and sleep (3) Adjustment disorder with mixed anxiety and depressed mood ICD Codes: F43.23 - Adjustment disorder with mixed anxiety and depressed mood Status: Acute Plan: per psych Subjective Subjective Comments No acute events reported less headache No chest pain No dyspnea Active Medications Current Medications Medications (Trade) Dose Ordered Sig/Zackery Route Start Time Stop Time Status Last Admin (Tylenol) 650 mg Q4H PRN PO 12/13/17 22:00 12/13/17 22:44 (Milk Of Magnesia Liq) 30 ml DAILY PRN PO 12/13/17 22:00 (Mag-Al Plus Susp Liq) 30 ml Q6H PRN PO 12/13/17 22:00 (Flexeril) 5 mg BID PO 12/13/17 22:00 12/15/17 09:06 (Toradol) 10 mg TID PO 12/14/17 09:00 12/15/17 09:05 (Reglan) 10 mg BID PO 12/13/17 22:00 12/15/17 09:06 (Pill Splitter) 1 ea UNSCH PRN OTHER 12/13/17 22:45 (SEROquel) 50 mg HS PO 12/14/17 21:00 12/14/17 20:53 (Restoril) 7.5 mg HS PRN PO 12/14/17 12:00 12/14/17 20:52 (Topamax) 50 mg DAILY PO 12/14/17 15:00 12/15/17 09:11 (Topamax) 100 mg HS PO 12/14/17 21:00 12/14/17 20:52 (Ativan) 1 mg Q6H PRN PO 12/14/17 14:15 12/14/17 20:53 (Fioricet 325-50-40) 1 tab Q4H PRN PO 12/14/17 18:00 (Imitrex Inj) 6 mg UNSCH PRN SQ 12/14/17 17:30 Allergies Allergies Coded Allergies fentanyl (Verified Allergy, Severe, 12/13/17) latex (Verified Allergy, Severe, Rash, 12/13/17) tramadol (Verified Allergy, Severe, Twitching, 12/13/17) Review of Systems Constitutional: Fatigue Eye: Blurring Respiratory: Negative except HPI Cardiovascular: Negative except HPI Gastrointestinal: Nausea, Vomitting Cipriano/Lymph: Negative except HPI Musculoskeletal: Negative except HPI Neurologic: Numbness, Tingling, Headache Psychiatric: Depression, Suicidal All other ROS: ROS reviewed as documented in chart Exam I&O / VS 12/15/17 12/15/17 12/16/17 14:59 22:59 06:59 Intake Total 240 ml Balance 240 ml Intake Oral 240 ml Vital Signs Date Time Temp Pulse Resp B/P (MAP) Pulse Ox O2 Delivery O2 Flow Rate FiO2 12/15/17 06:14 97.3 60 15 109/57 (74) 98 12/14/17 18:12 98.6 64 16 114/56 (75) 97 General: Alert and Oriented, No acute distress Eye: PERRL, EOMI Respiratory: Non-labored respirations Cardiology: Normal rate Musculoskeletal: ROM Neurologic: Alert, Oriented, No focal defects Psychiatric: Cooperative Objective Micro and Labs Laboratory Tests Test 12/14/17 13:58 Magnesium Level 2.4 C-Reactive Protein LESS THAN 0.29 Vitamin B12 Level 637 Folate 11.4 Thyroid Stimulating Hormone 3rd Gen 0.620 Yong Weston MD December 15, 2017 09:37
[2017-12-15] MEDS: LORazepam 1 MG TAB PO PRN ×2 (14:03→20:42)
--- NOTE | 2017-12-15 16:46 | HHI.PR ---
Subjective Remarks Follow-up for intractable headache, insomnia. Patient is currently doing well. She complains of persistent headache. She was able to sleep better last night. No fever or chills. Objective Vitals Vital Signs Date Time Temp Pulse Resp B/P (MAP) Pulse Ox O2 Delivery O2 Flow Rate FiO2 12/15/17 06:14 97.3 60 15 109/57 (74) 98 12/14/17 18:12 98.6 64 16 114/56 (75) 97 I/O 12/14/17 12/14/17 12/14/17 12/15/17 12/15/17 12/15/17 07:00 15:00 23:00 07:00 15:00 23:00 Intake Total 240 ml 1920 ml 240 ml 480 ml Balance 240 ml 1920 ml 240 ml 480 ml Intake Oral 240 ml 1920 ml 240 ml 480 ml # Voids 1 1 Result Diagram: 12/13/17 1609 12/13/17 1609 Imaging Last Impressions Head/Brain Mag Res Venography 12/14/17 0000 Signed Impressions: Service Date/Time: Thursday, December 14, 2017 15:28 - CONCLUSION: 1. Unremarkable MR venogram examination. No evidence for significant venous thrombosis. Abram Carolina MD Head Magnetic Resonance Angiography 12/14/17 0000 Signed Impressions: Service Date/Time: Thursday, December 14, 2017 15:28 - CONCLUSION: 1. 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 2. Otherwise, unremarkable MRA examination of the brain. Abram Carolina MD Objective Remarks GENERAL: Alert, oriented 3, NAD. SKIN: Warm and dry. HEAD: Normocephalic. EYES: No scleral icterus. No injection or drainage. NECK: Supple, trachea midline. No JVD or lymphadenopathy. CARDIOVASCULAR: Regular rate and rhythm without murmurs, gallops, or rubs. RESPIRATORY: Breath sounds equal bilaterally. No accessory muscle use. GASTROINTESTINAL: Abdomen soft, non-tender, nondistended. MUSCULOSKELETAL: No cyanosis, or edema. BACK: Nontender without obvious deformity. No CVA tenderness. Procedures None A/P Problem List: (1) Intractable headache ICD Code: R51 - Headache Status: Acute (2) Left wrist pain ICD Code: M25.532 - Pain in left wrist (3) Suicidal ideation ICD Code: R45.851 - Suicidal ideations Status: Acute Assessment and Plan Ms. Packer is a 42-year-old female who was admitted to [facility] due to suicidal ideations that stemmed from intractable headache. Despite evaluation by outpatient and inpatient physicians, her headache still is very persistent. She additionally complains of left wrist pain. Neurology and hospitalist service were consulted. Intractable headache -No previous history of headache. Palpation CT and MRI studies of the brain were unremarkable at an outside facility. -Neurology is following. MRA/MRV studies were largely unremarkable. -Currently she has Flexeril, Toradol. -Continue Topamax 50 mg Qday and 100mg QHS. -Neurology recommended nortriptyline as well. This medication was not started. After evaluating patient tomorrow we can decide whether to start nortriptyline or not. Insomnia -Seroquel 100 mg nightly and Restoril 7.5 mg nightly. Suicidal ideations -likely due to headache. Continue treatment per psychiatry. Full code. Ambulation. Problem Qualifiers (1) Intractable headache: Qualified Codes: R51 - Headache Edwin Hendricks DO December 15, 2017 16:46
[2017-12-15 18:16] VITALS: BP 109/66; PULSE 70; RESP 16; TEMP 98; O2SAT 97
[2017-12-15] MEDS: TEMAZEPAM 7.5 MG CAP PO PRN (20:41)
[2017-12-15] MEDS: TOPIRAMATE 100 MG TAB PO SCH (20:41)
[2017-12-15] MEDS: QUEtiapine FUMARATE 100 MG TAB PO SCH (20:42)
--- NOTE | 2017-12-15 21:58 | HHI.PYPN ---
Subjective Remarks Patient seen for follow up; chart reviewed. Discussion nursing staff reported the patient continues report having a headache but denying any suicide ideations today, reported having slept 4 hours last evening and ate breakfast. Patient was found lying hospital bed noted B, cooperative. Patient states that she slept much more last evening which she was happy about, continues to have depressed mood but denying any suicide ideations. Patient denied any auditory or visual hallucinations, continues report having some headache with the same intensity. Patient continues to be hopeful that she will continue improve and get back to her life. Review of Systems Except as stated in HPI: all other systems reviewed are Neg Mental Status Examination Appearance: Appropriate Consciousness: Alert Orientation: x4 Speech: Unremarkable Language: Adequate Fund of Knowledge: Adequate Attention and Concentration: Adequate Memory: Unremarkable Mood: Sad Affect: Sad, Other (Tearful) Thought Process & Associations: Intact, Logical, Linear Thought Content: Hallucinations (Denies today) Hallucination Type: None Delusion Type: None Suicidal Ideation: Yes (Denies today) Suicidal Plan: No Suicidal Intention: No Homicidal Ideation: No Homicidal Plan: No Homicidal Intention: No Insight: Fair Judgment: Impulsive Results Vitals/IOs Vital Signs Date Time Temp Pulse Resp B/P (MAP) Pulse Ox O2 Delivery O2 Flow Rate FiO2 12/15/17 18:16 98.0 70 16 109/66 (80) 97 12/13/17 19:21 Room Air 12/13/17 17:02 2.00 Intake and Output 12/15/17 12/15/17 12/16/17 08:00 16:00 00:00 Intake Total 480 ml 240 ml 240 ml Balance 480 ml 240 ml 240 ml Assessment & Plan Problem List: (1) Adjustment disorder with mixed anxiety and depressed mood ICD Codes: F43.23 - Adjustment disorder with mixed anxiety and depressed mood Status: Acute Assessment & Plan Patient with improved sleep, improved mood but continues report feeling depressed but denying any suicide ideations recommendations, input appreciated. We will decrease quetiapine to 100 mg p.o. at bedtime for continued mood stabilization for depression. Continue rest of medications. Continue monitor mood and behavior. Discharge planning in progress. Justification for Cont. Inpt. At risk of further decompensation at lower level of care. Jared Wong MD December 15, 2017 21:58
[2017-12-16 06:13] VITALS: BP 107/65; PULSE 63; RESP 17; TEMP 97.7; O2SAT 96
--- NOTE | 2017-12-16 08:12 | HHI.PR ---
Subjective Remarks Follow-up visit for intractable headaches and insomnia. Patient is seen and examined resting in bed comfortably in no acute distress. She reports that she has been eating more with no N/V/D. She continues to have migraines, but repots that she is no longer having photosensitivity or sensitivity to sound, also the pain in her neck and shoulders has improved. The migraine is mostly located now on the left side and around her left eye. She has been able to sleep well the past several day and overall feels better. Denies fevers, chills, dizziness or nausea. She reports her neurologist put her on a five day course of Toradol and that yesterday was her last day on this, she is worried about her renal function. Objective Vitals Vital Signs Date Time Temp Pulse Resp B/P (MAP) Pulse Ox O2 Delivery O2 Flow Rate FiO2 12/16/17 06:13 97.7 63 17 107/65 (79) 96 12/15/17 18:16 98.0 70 16 109/66 (80) 97 I/O 12/15/17 12/15/17 12/15/17 12/16/17 12/16/17 12/16/17 07:00 15:00 23:00 07:00 15:00 23:00 Intake Total 240 ml 480 ml 240 ml 240 ml Balance 240 ml 480 ml 240 ml 240 ml Intake Oral 240 ml 480 ml 240 ml 240 ml # Voids 1 Result Diagram: 12/13/17 1609 12/13/17 1609 Imaging Last Impressions Head/Brain Mag Res Venography 12/14/17 0000 Signed Impressions: Service Date/Time: Thursday, December 14, 2017 15:28 - CONCLUSION: 1. Unremarkable MR venogram examination. No evidence for significant venous thrombosis. Abram Carolina MD Head Magnetic Resonance Angiography 12/14/17 0000 Signed Impressions: Service Date/Time: Thursday, December 14, 2017 15:28 - CONCLUSION: 1. 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 2. Otherwise, unremarkable MRA examination of the brain. Abram Carolina MD Objective Remarks GENERAL: Pleasant female resting in bed in no acute distress. SKIN: Warm and dry. HEAD: Normocephalic. EYES: No scleral icterus. No injection or drainage. NECK: Supple, trachea midline. No JVD CARDIOVASCULAR: Regular rate and rhythm without murmurs, gallops, or rubs. RESPIRATORY: Breath sounds equal bilaterally. No accessory muscle use. GASTROINTESTINAL: Abdomen soft, non-tender, nondistended. MUSCULOSKELETAL: No cyanosis, or edema. NEUROLOGICAL: Alert, oriented 3, moving all extremities spontaneously, speech is clear. Procedures None A/P Problem List: (1) Intractable headache ICD Code: R51 - Headache Status: Acute (2) Left wrist pain ICD Code: M25.532 - Pain in left wrist (3) Suicidal ideation ICD Code: R45.851 - Suicidal ideations Status: Acute Assessment and Plan Ms. Packer is a 42-year-old female who was admitted to [facility] due to suicidal ideations that stemmed from intractable headache. Neurology and hospitalist service were consulted. Intractable headache -No previous history of headache. Palpation CT and MRI studies of the brain were unremarkable at an outside facility. -Neurology is following. MRA/MRV studies were largely unremarkable. -Currently she has Flexeril, Toradol, and Reglan. -Continue Topamax 50 mg Qday and 100mg QHS. -Fioricet p.o., Imitrex SQ, patient encouraged to also try these per -Neurology recommended nortriptyline as well. This medication was not started. -She has been able to sleep on current medications and headaches do seem to be improving, will monitor when she continues Fioricet and Imitrex tomorrow for improvement -Patient with concerns of renal damage with the use of Toradol, BMP checked renal function stable, potassium 3.4. Will supplement with 20 meq's of KCl p.o. Insomnia -Seroquel 100 mg nightly and Restoril 7.5 mg nightly. Sleeping well. Suicidal ideations -likely due to headache. Continue treatment per psychiatry. Full code. Ambulation. Discussed with patient and nurse Problem Qualifiers (1) Intractable headache: Qualified Codes: R51 - Headache Ryder Puentes December 16, 2017 08:12
[2017-12-16] MEDS: METOCLOPRAMIDE HCL 10 MG TAB PO SCH ×3 (09:00→20:41)
[2017-12-16] MEDS: CYCLOBENZAPRINE HCL 10 MG TAB PO SCH ×2 (09:51→20:30)
[2017-12-16] MEDS: KETOROLAC TROMETHAMINE 10 MG TAB PO SCH ×3 (09:52→18:00)
[2017-12-16] MEDS: TOPIRAMATE 25 MG TAB PO SCH (09:52)
[2017-12-16 12:00] LABS: BICARBONATE 27.9 MEQ/L (21.0-32.0); CALCIUM 8.8 MG/DL (8.5-10.1); CREATININE 0.72 MG/DL (0.50-1.00)
[2017-12-16] MEDS: LORazepam 1 MG TAB PO PRN (12:42)
[2017-12-16] MEDS ORDERED: POTASSIUM CHLORIDE 20 MEQ CONTROLLED RELEASE TAB PO ONE (13:45)
[2017-12-16 17:24] VITALS: BP 123/57; PULSE 67; RESP 17; TEMP 98.4; O2SAT 98
[2017-12-16] MEDS: TOPIRAMATE 100 MG TAB PO SCH (20:30)
[2017-12-16] MEDS: QUEtiapine FUMARATE 100 MG TAB PO SCH (20:30)
[2017-12-16] MEDS: TEMAZEPAM 7.5 MG CAP PO PRN (20:44)
--- NOTE | 2017-12-16 23:09 | HHI.PYPN ---
Subjective Remarks Patient seen for follow up; chart reviewed. Discussion nursing staff reported the patient continues to have same intensity headache but now more unilateral, continues report feeling depressed due to the same, but sleeping better and eating and drinking better. Patient was found lying hospital bed noted B, cooperative. Patient states that she has slept last night, denying any perceptional services today. Patient states that she still has a headache but now more on the left side and right. Patient reports eating better, appetite is improving, continues report feeling depressed 7 out of 10 (10 being its worst ) continues to be surrounding how her headaches have been impacting her social and personal life. Patient denies any suicide ideations at this time. Review of Systems Except as stated in HPI: all other systems reviewed are Neg Mental Status Examination Appearance: Appropriate Consciousness: Alert Orientation: x4 Speech: Unremarkable Language: Adequate Fund of Knowledge: Adequate Attention and Concentration: Adequate Memory: Unremarkable Mood: Sad Affect: Sad, Other (Tearful) Thought Process & Associations: Intact, Logical, Linear Thought Content: Hallucinations (Denies today) Hallucination Type: None Delusion Type: None Suicidal Ideation: Yes (Denies today) Suicidal Plan: No Suicidal Intention: No Homicidal Ideation: No Homicidal Plan: No Homicidal Intention: No Insight: Fair Judgment: Impulsive Results Labs Labs reviewed Test 12/16/17 11:00 Blood Urea Nitrogen 11 MG/DL Creatinine 0.72 MG/DL Random Glucose 82 MG/DL Calcium Level 8.8 MG/DL Sodium Level 141 MEQ/L Potassium Level 3.4 MEQ/L Chloride Level 107 MEQ/L Carbon Dioxide Level 27.9 MEQ/L Anion Gap 6 MEQ/L Estimat Glomerular Filtration Rate 88 ML/MIN Vitals/IOs Vital Signs Date Time Temp Pulse Resp B/P (MAP) Pulse Ox O2 Delivery O2 Flow Rate FiO2 12/16/17 17:24 98.4 67 17 123/57 (79) 98 12/13/17 19:21 Room Air 12/13/17 17:02 2.00 Intake and Output 12/16/17 12/16/17 12/17/17 08:00 16:00 00:00 Intake Total 360 ml 240 ml Balance 360 ml 240 ml Assessment & Plan Problem List: (1) Adjustment disorder with mixed anxiety and depressed mood ICD Codes: F43.23 - Adjustment disorder with mixed anxiety and depressed mood Status: Acute Assessment & Plan Patient at this time continues to endorse feeling depressed other feeling some relief from improved sleep other continues to have continued headaches. Patient to continue current treatment. Continue to monitor mood and behavior. Discharge planning in progress. Justification for Cont. Inpt. At risk of further decompensation at lower level care. Discharge Planning Return back home when psychiatrically stable Jared Wong MD December 16, 2017 23:09
[2017-12-17 06:04] VITALS: BP 110/63; PULSE 64; RESP 16; TEMP 98; O2SAT 95
--- NOTE | 2017-12-17 07:50 | HHI.PR ---
Subjective Remarks Follow-up visit for migraine headaches and insomnia. Patient seen and examined in bed with nurse at bedside. She reports she had a good night sleep with no visual or auditory hallucinations. States that the injection of Imitrex she received yesterday did relieve her migraine although did not completely resolve it. She would like to know if she could get another injection today. She reports that she is feeling better in regards to sleep and many of the sensory symptoms that she was having when she first came and have now resolved. She denies any vertigo or dizziness. She states that she is in the process of having her doctor fax over her medical records to [place] for further evaluation of her severe migraines. She is asking when she will be going home. Objective Vitals Vital Signs Date Time Temp Pulse Resp B/P (MAP) Pulse Ox O2 Delivery O2 Flow Rate FiO2 12/17/17 06:04 98.0 64 16 110/63 (79) 95 12/16/17 17:24 98.4 67 17 123/57 (79) 98 I/O 12/16/17 12/16/17 12/16/17 12/17/17 12/17/17 12/17/17 07:00 15:00 23:00 07:00 15:00 23:00 Intake Total 360 ml 240 ml 0 ml Balance 360 ml 240 ml 0 ml Intake Oral 360 ml 240 ml 0 ml # Voids 0 Result Diagram: 12/13/17 1609 12/16/17 1100 Imaging Last Impressions Head/Brain Mag Res Venography 12/14/17 0000 Signed Impressions: Service Date/Time: Thursday, December 14, 2017 15:28 - CONCLUSION: 1. Unremarkable MR venogram examination. No evidence for significant venous thrombosis. Abram Carolina MD Head Magnetic Resonance Angiography 12/14/17 0000 Signed Impressions: Service Date/Time: Thursday, December 14, 2017 15:28 - CONCLUSION: 1. 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 2. Otherwise, unremarkable MRA examination of the brain. Abram Carolina MD Objective Remarks GENERAL: Pleasant female resting in bed in no acute distress. SKIN: Warm and dry. HEAD: Normocephalic. EYES: No scleral icterus. No injection or drainage. NECK: Supple, trachea midline. No JVD CARDIOVASCULAR: Regular rate and rhythm without murmurs, gallops, or rubs. RESPIRATORY: Breath sounds equal bilaterally. No accessory muscle use. GASTROINTESTINAL: Abdomen soft, non-tender, nondistended. MUSCULOSKELETAL: No cyanosis, or edema. NEUROLOGICAL: Alert, oriented 3, moving all extremities spontaneously, speech is clear. Procedures None A/P Problem List: (1) Intractable headache ICD Code: R51 - Headache Status: Acute (2) Left wrist pain ICD Code: M25.532 - Pain in left wrist (3) Suicidal ideation ICD Code: R45.851 - Suicidal ideations Status: Acute Assessment and Plan Ms. Packer is a 42-year-old female who was admitted to [facility] due to suicidal ideations that stemmed from intractable headache. Neurology and hospitalist service were consulted. Intractable headache -No previous history of headache. Palpation CT and MRI studies of the brain were unremarkable at an outside facility. -Neurology is following. MRA/MRV studies were largely unremarkable. -Currently she has Flexeril, Toradol, and Reglan( has been refusing). -Continue Topamax 50 mg Qday and 100mg QHS. -Fioricet p.o. states this does not work for her and causes bad rebound migraine headaches. - Will try PO Imitrex, if no relief can try SQ Imitrex, discussed with patient and nurse. -Neurology recommended nortriptyline as well. This medication was not started. -Has been sleeping well on current medications per psych. -BMP checked renal function stable, potassium 3.4. s/p KCL replacement discussed with patient. Insomnia -Seroquel 100 mg nightly and Restoril 7.5 mg nightly. Sleeping well. Suicidal ideations -likely due to headache. Continue treatment per psychiatry. Full code. Ambulation. Discussed with patient and nurse. Problem Qualifiers (1) Intractable headache: Qualified Codes: R51 - Headache DhavalRyder [facility] December 17, 2017 07:50
--- NOTE | 2017-12-17 08:17 | HHI.PYPN ---
Subjective Remarks Patient seen for follow, chart reviewed. Discussion nursing staff reported the patient continues to sleep better, continues report feeling depressed, headache improving. Patient was found lying hospital and noted B, cooperative. Patient states that she is feeling "okay" continues to state that her headache continues to be present and depressed still worried about how this is impacting her life (noted to be tearful) but denying any auditory or visual hallucinations or suicidal ideations. 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 Patient reports having visited by her which went well. Review of Systems Except as stated in HPI: all other systems reviewed are Neg Mental Status Examination Appearance: Appropriate Consciousness: Alert Orientation: x4 Speech: Unremarkable Language: Adequate Fund of Knowledge: Adequate Attention and Concentration: Adequate Memory: Unremarkable Mood: Sad Affect: Sad, Other (Tearful) Thought Process & Associations: Intact, Logical, Linear Thought Content: Hallucinations (Denies today) Hallucination Type: None Delusion Type: None Suicidal Ideation: Yes (Denies today) Suicidal Plan: No Suicidal Intention: No Homicidal Ideation: No Homicidal Plan: No Homicidal Intention: No Insight: Fair Judgment: Impulsive Results Labs Labs reviewed Test 12/16/17 11:00 Blood Urea Nitrogen 11 MG/DL Creatinine 0.72 MG/DL Random Glucose 82 MG/DL Calcium Level 8.8 MG/DL Sodium Level 141 MEQ/L Potassium Level 3.4 MEQ/L Chloride Level 107 MEQ/L Carbon Dioxide Level 27.9 MEQ/L Anion Gap 6 MEQ/L Estimat Glomerular Filtration Rate 88 ML/MIN Vitals/IOs Vital Signs Date Time Temp Pulse Resp B/P (MAP) Pulse Ox O2 Delivery O2 Flow Rate FiO2 12/17/17 06:04 98.0 64 16 110/63 (79) 95 12/13/17 19:21 Room Air 12/13/17 17:02 2.00 Intake and Output 12/17/17 12/17/17 12/18/17 08:00 16:00 00:00 Intake Total 0 ml Balance 0 ml Assessment & Plan Problem List: (1) Adjustment disorder with mixed anxiety and depressed mood ICD Codes: F43.23 - Adjustment disorder with mixed anxiety and depressed mood Status: Acute Assessment & Plan Patient at this time continues with depressed mood, tearful during interview, denies any suicide ideations. Patient with improved sleep but less evening had interrupted sleep. We will increase quetiapine to 150 mg p.o. at bedtime for depression, continue rest of medications. Continue recommendations as per prior medical team. Continue recommendations as per neurology consult. Continue to monitor mood and behavior. Discharge planning in progress. Justification for Cont. Inpt. At risk of further decompensation at lower level care. Discharge Planning Patient to return back to her residence when psychiatrically and medically cleared. Jared Wong MD December 17, 2017 08:17
[2017-12-17] MEDS: METOCLOPRAMIDE HCL 10 MG TAB PO SCH ×2 (08:49→20:59)
[2017-12-17] MEDS: ACETAMIN 325 MG/BUTALBITAL 50 MG/CAFFEINE 40 MG TAB PO PRN ×2 (08:50→18:41)
[2017-12-17] MEDS: KETOROLAC TROMETHAMINE 10 MG TAB PO SCH ×3 (08:50→17:42)
[2017-12-17] MEDS: CYCLOBENZAPRINE HCL 10 MG TAB PO SCH ×2 (08:51→20:56)
[2017-12-17] MEDS: TOPIRAMATE 25 MG TAB PO SCH (08:51)
[2017-12-17] MEDS: SUMAtriptan SUCCINATE 25 MG TAB PO PRN ×2 (09:17→11:55)
[2017-12-17 12:16] VITALS: BP 137/83; PULSE 71; RESP 16; TEMP 97.7; O2SAT 98
[2017-12-17] MEDS: LORazepam 1 MG TAB PO PRN ×2 (12:24→23:35)
[2017-12-17 15:26] VITALS: BP 126/68; PULSE 66; RESP 17; TEMP 97.5; O2SAT 98
[2017-12-17 18:08] VITALS: BP 117/60; PULSE 76; RESP 16; TEMP 98.1; O2SAT 97
[2017-12-17] MEDS: TOPIRAMATE 100 MG TAB PO SCH (20:55)
[2017-12-17] MEDS: QUEtiapine FUMARATE 100 MG TAB PO SCH (20:56)
[2017-12-17] MEDS: TEMAZEPAM 7.5 MG CAP PO SCH (21:00)
[2017-12-18 06:22] VITALS: BP 112/57; PULSE 55; RESP 17; TEMP 97.3; O2SAT 96
[2017-12-18] MEDS: METOCLOPRAMIDE HCL 10 MG TAB PO SCH ×2 (09:00→21:00)
--- NOTE | 2017-12-18 09:15 | HHI.PR ---
Subjective Remarks Follow-up visit for migraine headaches and insomnia. Discussed with nurse, who reports no acute complaints. Patient seen and examined in room resting comfortably in no acute distress. She reports insomnia overnight as she was unable to get Restoril since she apparently did not have consent for this. She tells me that she did take Fioricet as well as Imitrex yesterday with some relief and migraines. Denies any visual, auditory or sensory changes. Denies any fevers, chills, nausea, vomiting, diarrhea or dizziness. Objective Vitals Vital Signs Date Time Temp Pulse Resp B/P (MAP) Pulse Ox O2 Delivery O2 Flow Rate FiO2 12/18/17 06:22 97.3 55 17 112/57 (75) 96 12/17/17 18:08 98.1 76 16 117/60 (79) 97 12/17/17 15:26 97.5 66 17 126/68 (87) 98 12/17/17 12:16 97.7 71 16 137/83 (101) 98 I/O 12/17/17 12/17/17 12/17/17 12/18/17 12/18/17 12/18/17 07:00 15:00 23:00 07:00 15:00 23:00 Intake Total 0 ml 5520 ml 240 ml Balance 0 ml 5520 ml 240 ml Intake Oral 0 ml 5520 ml 240 ml # Voids 0 1 1 Result Diagram: 12/16/17 1100 Imaging Last Impressions Head/Brain Mag Res Venography 12/14/17 0000 Signed Impressions: Service Date/Time: Thursday, December 14, 2017 15:28 - CONCLUSION: 1. Unremarkable MR venogram examination. No evidence for significant venous thrombosis. Abram Carolina MD Head Magnetic Resonance Angiography 12/14/17 0000 Signed Impressions: Service Date/Time: Thursday, December 14, 2017 15:28 - CONCLUSION: 1. 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 2. Otherwise, unremarkable MRA examination of the brain. Abram Carolina MD Objective Remarks GENERAL: Pleasant female resting in bed in no acute distress. SKIN: Warm and dry. HEAD: Normocephalic. EYES: No scleral icterus. No injection or drainage. CARDIOVASCULAR: Regular rate and rhythm without murmurs, gallops, or rubs. RESPIRATORY: Breath sounds equal bilaterally. No accessory muscle use. GASTROINTESTINAL: Abdomen soft, non-tender, nondistended. MUSCULOSKELETAL: No cyanosis, or edema. NEUROLOGICAL: Alert, oriented 3, moving all extremities spontaneously, speech is clear. Procedures None A/P Problem List: (1) Intractable headache ICD Code: R51 - Headache Status: Acute (2) Left wrist pain ICD Code: M25.532 - Pain in left wrist (3) Suicidal ideation ICD Code: R45.851 - Suicidal ideations Status: Acute Assessment and Plan Ms. Packer is a 42-year-old female who was admitted to [facility] due to suicidal ideations that stemmed from intractable headache. Neurology and hospitalist service were consulted. Intractable headache -No previous history of headache. Palpation CT and MRI studies of the brain were unremarkable at an outside facility. -Neurology is following. MRA/MRV studies were largely unremarkable. -Currently she has Flexeril, Toradol, and Reglan( has been refusing). -Continue Topamax 50 mg Qday and 100mg QHS. -Continue as needed Fioricet and p.o. Imitrex, if no relief can try SQ Imitrex. -Neurology recommended nortriptyline as well. This medication was not started. -Insomnia overnight as she did not receive Restoril, verified with nurse today there is consent in chart. Insomnia -Seroquel 150 mg nightly and Restoril 7.5 mg nightly. Sleeping well. Suicidal ideations -likely due to headache. Continue treatment per psychiatry. Full code. Ambulation. Discussed with patient and nurse. Problem Qualifiers (1) Intractable headache: Qualified Codes: R51 - Headache Ryder Puentes December 18, 2017 09:15
[2017-12-18] MEDS: TOPIRAMATE 25 MG TAB PO SCH (09:47)
[2017-12-18] MEDS: CYCLOBENZAPRINE HCL 10 MG TAB PO SCH ×2 (09:47→20:55)
[2017-12-18] MEDS: KETOROLAC TROMETHAMINE 10 MG TAB PO SCH ×3 (09:47→18:00)
[2017-12-18] MEDS: LORazepam 1 MG TAB PO PRN (14:14)
--- NOTE | 2017-12-18 16:06 | HHI.PYPN ---
Subjective Remarks Patient was seen and case discussed with nursing. Patient is very concerned about her medical diagnoses. She continues to suffer from headaches. She is tearful during the interview with fears that her condition could be chronic and debilitating. She does however denies suicidal or homicidal ideation intent or plan. we spoke about coping skills and medication Mental Status Examination Appearance: Appropriate Consciousness: Alert Orientation: x4 Speech: Unremarkable Language: Adequate Fund of Knowledge: Adequate Attention and Concentration: Adequate Memory: Unremarkable Mood: Sad Affect: Sad, Other (Tearful) Thought Process & Associations: Intact, Logical, Linear Thought Content: Hallucinations (Denies today) Hallucination Type: None Delusion Type: None Suicidal Ideation: No Suicidal Plan: No Suicidal Intention: No Homicidal Ideation: No Homicidal Plan: No Homicidal Intention: No Insight: Fair Judgment: Impulsive Results Vitals/IOs Vital Signs Date Time Temp Pulse Resp B/P (MAP) Pulse Ox O2 Delivery O2 Flow Rate FiO2 12/18/17 06:22 97.3 55 17 112/57 (75) 96 Intake and Output 12/18/17 12/18/17 12/19/17 08:00 16:00 00:00 Intake Total 240 ml 240 ml Balance 240 ml 240 ml Assessment & Plan Problem List: (1) Adjustment disorder with mixed anxiety and depressed mood ICD Codes: F43.23 - Adjustment disorder with mixed anxiety and depressed mood Status: Acute Assessment & Plan Continue current treatment plan Justification for Cont. Inpt. Patient would decompensate in a less restrictive setting Robson Sánchez DO December 18, 2017 16:06
[2017-12-18 18:00] VITALS: BP 121/66; PULSE 61; RESP 17; TEMP 98.4; O2SAT 98
[2017-12-18] MEDS: TEMAZEPAM 7.5 MG CAP PO SCH (20:55)
[2017-12-18] MEDS: TOPIRAMATE 100 MG TAB PO SCH (20:55)
[2017-12-18] MEDS: QUEtiapine FUMARATE 100 MG TAB PO SCH (20:55)
[2017-12-19 06:00] VITALS: BP 118/68; PULSE 60; RESP 16; TEMP 97.6; O2SAT 96
--- NOTE | 2017-12-19 07:58 | HHI.PR ---
Subjective Remarks Follow-up visit for migraine headaches and insomnia. Discussed with nurse, who reports no acute complaints. Patient is seen and examined sitting up in bed this morning eating breakfast. She reports that she received Restoril overnight and was able to sleep without any acute complaints or concerns. Patient makes mention to me that her primary had ordered an MRI of her neck and spine due to an episode of left arm pain and hand weakness which occurred 8 weeks ago. This has since resolved, she is questioning if she can have this done since she is already here. She voices no other acute concerns or complaints. Reports headache has not completely resolved but has improved. Objective Vitals Vital Signs Date Time Temp Pulse Resp B/P (MAP) Pulse Ox O2 Delivery O2 Flow Rate FiO2 12/19/17 06:00 97.6 60 16 118/68 (85) 96 12/18/17 18:00 98.4 61 17 121/66 (84) 98 I/O 12/18/17 12/18/17 12/18/17 12/19/17 12/19/17 12/19/17 07:00 15:00 23:00 07:00 15:00 23:00 Intake Total 960 ml 720 ml 120 ml Balance 960 ml 720 ml 120 ml Intake Oral 960 ml 720 ml 120 ml # Voids 1 1 1 Result Diagram: 12/16/17 1100 Imaging Last Impressions Head/Brain Mag Res Venography 12/14/17 0000 Signed Impressions: Service Date/Time: Thursday, December 14, 2017 15:28 - CONCLUSION: 1. Unremarkable MR venogram examination. No evidence for significant venous thrombosis. Abram Carolina MD Head Magnetic Resonance Angiography 12/14/17 0000 Signed Impressions: Service Date/Time: Thursday, December 14, 2017 15:28 - CONCLUSION: 1. 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 2. Otherwise, unremarkable MRA examination of the brain. Abram Carolina MD Objective Remarks GENERAL: Pleasant female resting in bed in no acute distress. SKIN: Warm and dry. HEAD: Normocephalic. EYES: No scleral icterus. No injection or drainage. CARDIOVASCULAR: Regular rate and rhythm without murmurs, gallops, or rubs. RESPIRATORY: Breath sounds equal bilaterally. No accessory muscle use. GASTROINTESTINAL: Abdomen soft, non-tender, nondistended. MUSCULOSKELETAL: No cyanosis, or edema. NEUROLOGICAL: Alert, oriented 3, moving all extremities spontaneously, speech is clear. Procedures None A/P Problem List: (1) Intractable headache ICD Code: R51 - Headache Status: Acute (2) Left wrist pain ICD Code: M25.532 - Pain in left wrist (3) Suicidal ideation ICD Code: R45.851 - Suicidal ideations Status: Acute Assessment and Plan Ms. Packer is a 42-year-old female who was admitted to [facility] due to suicidal ideations that stemmed from intractable headache. Neurology and hospitalist service were consulted. Intractable headache -No previous history of headache. CT and MRI studies of the brain were unremarkable at an outside facility. -Neurology is following. MRA/MRV studies were largely unremarkable. -Currently she has Flexeril, Toradol, and Reglan( has been refusing). -Continue Topamax 50 mg Qday and 100mg QHS. -Continue as needed Fioricet and p.o. Imitrex, if no relief can try SQ Imitrex. -Neurology recommended nortriptyline as well. This medication was not started. -Slept well overnight. -Discussed with patient that MRI of neck and spine will need to be completed as an outpatient basis since her symptoms have resolved, voiced understanding. Insomnia -Seroquel 150 mg nightly and Restoril 7.5 mg nightly. Sleeping well. Suicidal ideations -likely due to headache. Continue treatment per psychiatry. Full code. Ambulation. Discussed with patient and nurse. Problem Qualifiers (1) Intractable headache: Qualified Codes: R51 - Headache Ryder Puentes December 19, 2017 07:58
[2017-12-19] MEDS: CYCLOBENZAPRINE HCL 10 MG TAB PO SCH ×2 (08:49→20:10)
[2017-12-19] MEDS: KETOROLAC TROMETHAMINE 10 MG TAB PO SCH ×3 (08:53→17:43)
[2017-12-19] MEDS: TOPIRAMATE 25 MG TAB PO SCH (08:53)
[2017-12-19] MEDS: METOCLOPRAMIDE HCL 10 MG TAB PO SCH ×2 (08:53→20:10)
[2017-12-19] MEDS: LORazepam 1 MG TAB PO PRN (11:42)
--- NOTE | 2017-12-19 15:24 | HHI.PYPN ---
Subjective Remarks Patient was seen and case discussed with nursing. Patient was interviewed with in the room. Patient remains tearful and anxious concerning her medical diagnosis. Per nursing, it appears the medical doctors have not thoroughly discussed her prognosis and diagnosis with her. She is complaining of anxiety. At times tearful. Though she says her mood has improved and she denies suicidal or homicidal ideation intent or plan Mental Status Examination Appearance: Appropriate Consciousness: Alert Orientation: x4 Speech: Unremarkable Language: Adequate Fund of Knowledge: Adequate Attention and Concentration: Adequate Memory: Unremarkable Mood: Sad Affect: Sad, Other (Tearful) Thought Process & Associations: Intact, Logical, Linear Thought Content: Hallucinations (Denies today) Hallucination Type: None Delusion Type: None Suicidal Ideation: No Suicidal Plan: No Suicidal Intention: No Homicidal Ideation: No Homicidal Plan: No Homicidal Intention: No Insight: Fair Judgment: Impulsive Results Vitals/IOs Vital Signs Date Time Temp Pulse Resp B/P (MAP) Pulse Ox O2 Delivery O2 Flow Rate FiO2 12/19/17 06:00 97.6 60 16 118/68 (85) 96 Intake and Output 12/19/17 12/19/17 12/20/17 08:00 16:00 00:00 Intake Total 600 ml 240 ml Balance 600 ml 240 ml Assessment & Plan Problem List: (1) Adjustment disorder with mixed anxiety and depressed mood ICD Codes: F43.23 - Adjustment disorder with mixed anxiety and depressed mood Status: Acute Assessment & Plan I suggest coordination with the medical team so patient is aware of her neurological diagnosis Justification for Cont. Inpt. Patient would decompensate in a less restrictive setting Robson Sánchez DO December 19, 2017 15:24
[2017-12-19 18:03] VITALS: BP 140/65; PULSE 65; RESP 16; TEMP 98.1; O2SAT 98
[2017-12-19] MEDS: QUEtiapine FUMARATE 100 MG TAB PO SCH (20:10)
[2017-12-19] MEDS: TOPIRAMATE 100 MG TAB PO SCH (20:10)
[2017-12-19] MEDS: TEMAZEPAM 7.5 MG CAP PO SCH (20:10)
[2017-12-20 06:01] VITALS: BP 101/52; PULSE 69; RESP 16; TEMP 97.8; O2SAT 96
--- NOTE | 2017-12-20 07:39 | HHI.PR ---
Review/Management Diagnosis/Plan: (1) Migraine aura, persistent, intractable ICD Codes: G43.519 - Persistent migraine aura without cerebral infarction, intractable, without status migrainosus Status: Chronic Plan: mra/mrv- negative for any significant vascular occlusion on Topamax to 50mg qam and 100mg qhs imitrex im prn qdaily for severe migraine chronic intractable migraines followed by an outpatient neurologist and has been hospitalized for them at [facility]. fioricet prn, imitrex injection for severe headache. will need to f/u with her neurologist after psychiatric admission for further eval/tx and consideration of botox. chronic insomnia also likely affecting migraine in addition to depression recs seems more comfortable imitrex im has helped her will add depakote er qhs outpatient f/u with her neuro when released by psych (2) Insomnia ICD Codes: G47.00 - Insomnia, unspecified Status: Chronic Plan: psychiatry has started Temazepam and Seroquel (3) Adjustment disorder with mixed anxiety and depressed mood ICD Codes: F43.23 - Adjustment disorder with mixed anxiety and depressed mood Status: Acute Plan: per psych Subjective Subjective Comments No acute events reported + headache; imitrex has helped her No chest pain No dyspnea Active Medications Current Medications Medications (Trade) Dose Ordered Sig/Zackery Route Start Time Stop Time Status Last Admin (Tylenol) 650 mg Q4H PRN PO 12/13/17 22:00 12/13/17 22:44 (Milk Of Magnesia Liq) 30 ml DAILY PRN PO 12/13/17 22:00 (Mag-Al Plus Susp Liq) 30 ml Q6H PRN PO 12/13/17 22:00 (Flexeril) 5 mg BID PO 12/13/17 22:00 12/19/17 20:10 (Toradol) 10 mg TID PO 12/14/17 09:00 12/16/17 09:52 (Reglan) 10 mg BID PO 12/13/17 22:00 12/15/17 09:06 (Pill Splitter) 1 ea UNSCH PRN OTHER 12/13/17 22:45 (Topamax) 50 mg DAILY PO 12/14/17 15:00 12/19/17 08:53 (Topamax) 100 mg HS PO 12/14/17 21:00 12/19/17 20:10 (Ativan) 1 mg Q6H PRN PO 12/14/17 14:15 12/19/17 11:42 (Fioricet 325-50-40) 1 tab Q4H PRN PO 12/14/17 18:00 12/17/17 18:41 (Imitrex Inj) 6 mg UNSCH PRN SQ 12/14/17 17:30 12/16/17 12:35 (Imitrex) 25 mg Q8HR PRN PO 12/17/17 08:00 12/17/17 11:55 (SEROquel) 150 mg HS PO 12/17/17 21:00 12/19/17 20:10 (Restoril) 7.5 mg HS PO 12/17/17 21:00 12/19/17 20:10 Allergies Allergies Coded Allergies fentanyl (Verified Allergy, Severe, 12/13/17) latex (Verified Allergy, Severe, Rash, 12/13/17) tramadol (Verified Allergy, Severe, Twitching, 12/13/17) Review of Systems Respiratory: Negative except HPI Cardiovascular: Negative except HPI Gastrointestinal: Nausea, Vomitting Cipriano/Lymph: Negative except HPI Musculoskeletal: Negative except HPI Neurologic: Headache All other ROS: ROS reviewed as documented in chart Exam I&O / VS Vital Signs Date Time Temp Pulse Resp B/P (MAP) Pulse Ox O2 Delivery O2 Flow Rate FiO2 12/20/17 06:01 97.8 69 16 101/52 (68) 96 12/19/17 18:03 98.1 65 16 140/65 (90) 98 General: Alert and Oriented, No acute distress Eye: PERRL, EOMI Respiratory: Non-labored respirations Cardiology: Normal rate Musculoskeletal: ROM Neurologic: Alert, Oriented, Normal motor, No focal defects, CN II-XII intact Psychiatric: Cooperative, Appropriate mood & affect Exam Comments alert, ox 3, follows, articulate, smiling during exam, eomi, ou 3-2mm, face sym , no focal weakness Yong Weston MD December 20, 2017 07:39
--- NOTE | 2017-12-20 08:03 | HHI.PR ---
Subjective Remarks Follow-up visit for migraine headaches and insomnia. Patient is seen and examined sitting in bed reading a book this morning. She reports she was able to sleep overnight. Did have an increase in intensity of migraine overnight however states that it did not get to the point where it was unbearable and she ended up falling asleep. She has not needed any Fioricet or Imitrex since 12/17, reports that she will try not to take any pain medication as long as she can tolerate migraine. She currently reports migraine headache -12/23. This morning she is wanting to speak to the psychiatrist regarding her anxiety and what she can do to help with this. Objective Vitals Vital Signs Date Time Temp Pulse Resp B/P (MAP) Pulse Ox O2 Delivery O2 Flow Rate FiO2 12/20/17 06:01 97.8 69 16 101/52 (68) 96 12/19/17 18:03 98.1 65 16 140/65 (90) 98 I/O 12/19/17 12/19/17 12/19/17 12/20/17 12/20/17 12/20/17 07:00 15:00 23:00 07:00 15:00 23:00 Intake Total 120 ml 720 ml 1680 ml 240 ml Balance 120 ml 720 ml 1680 ml 240 ml Intake Oral 120 ml 720 ml 1680 ml 240 ml # Voids 1 1 1 Result Diagram: 12/16/17 1100 Imaging Last Impressions Head/Brain Mag Res Venography 12/14/17 0000 Signed Impressions: Service Date/Time: Thursday, December 14, 2017 15:28 - CONCLUSION: 1. Unremarkable MR venogram examination. No evidence for significant venous thrombosis. Abram Carolina MD Head Magnetic Resonance Angiography 12/14/17 0000 Signed Impressions: Service Date/Time: Thursday, December 14, 2017 15:28 - CONCLUSION: 1. 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 2. Otherwise, unremarkable MRA examination of the brain. Abram Carolina MD Objective Remarks GENERAL: Pleasant female resting in bed in no acute distress. SKIN: Warm and dry. HEAD: Normocephalic. EYES: No scleral icterus. No injection or drainage. CARDIOVASCULAR: Regular rate and rhythm without murmurs, gallops, or rubs. RESPIRATORY: Breath sounds equal bilaterally. No accessory muscle use. GASTROINTESTINAL: Abdomen soft, non-tender, nondistended. MUSCULOSKELETAL: No cyanosis, or edema. NEUROLOGICAL: Alert, oriented 3, moving all extremities spontaneously, speech is clear. Procedures None A/P Problem List: (1) Intractable headache ICD Code: R51 - Headache Status: Acute (2) Left wrist pain ICD Code: M25.532 - Pain in left wrist (3) Suicidal ideation ICD Code: R45.851 - Suicidal ideations Status: Acute Assessment and Plan Ms. Packer is a 42-year-old female who was admitted to [facility] due to suicidal ideations that stemmed from intractable headache. Neurology and hospitalist service were consulted. Intractable headache -No previous history of headache. CT and MRI studies of the brain were unremarkable at an outside facility. -Neurology is following. MRA/MRV studies were largely unremarkable. -Currently she has Flexeril, Toradol, and Reglan( has been refusing). -Continue Topamax 50 mg Qday and 100mg QHS. -Continue as needed Fioricet and p.o. Imitrex, if no relief can try SQ Imitrex. -Neurology recommended nortriptyline as well. This medication was not started. -Neurology has started Depakote today Insomnia -Seroquel 150 mg nightly and Restoril 7.5 mg nightly. Sleeping well. Suicidal ideations -likely due to headache. Continue treatment per psychiatry. Anxiety-patient started on hydroxyzine for anxiety by primary team. Full code. Ambulation. Discussed with patient, nurse, and Dr. Wogn. Problem Qualifiers (1) Intractable headache: Qualified Codes: R51 - Headache Ryder Puentes December 20, 2017 08:03
[2017-12-20] MEDS: CYCLOBENZAPRINE HCL 10 MG TAB PO SCH ×2 (09:57→20:57)
[2017-12-20] MEDS: TOPIRAMATE 25 MG TAB PO SCH (09:57)
[2017-12-20] MEDS: DIVALPROEX SODIUM E.R. 250 MG TAB PO SCH (09:57)
--- NOTE | 2017-12-20 09:57 | HHI.PYPN ---
Subjective Remarks Patient is here for follow, chart reviewed. Discussion nursing staff reported the patient slept well, attended some groups over the weekend. Patient was found lying hospital bed noted B, cooperative. Patient states that her weekend went okay and that she had attended some groups. Patient recalls having visited visited by her which he thinks she is doing better. Patient endorsing noted anxiety mostly in the afternoon which began to become tearful about as she states she has been worried about the prognosis of her ongoing headaches and how that is going to impact her life going forward. Patient states that she slept well with medications last evening, denying any suicide ideations, last time being days ago. Patient no longer endorsing any perceptional services. Patient states her mood has been "not great, pretty low " related to her anxiety and worry about ongoing headaches. Review of Systems Except as stated in HPI: all other systems reviewed are Neg Mental Status Examination Appearance: Appropriate Consciousness: Alert Orientation: x4 Speech: Unremarkable Language: Adequate Fund of Knowledge: Adequate Attention and Concentration: Adequate Memory: Unremarkable Mood: Sad, Anxious Affect: Sad, Anxious, Other (Tearful at times) Thought Process & Associations: Intact, Logical, Linear Thought Content: Appropriate Hallucination Type: None Delusion Type: None Suicidal Ideation: No Suicidal Plan: No Suicidal Intention: No Homicidal Ideation: No Homicidal Plan: No Homicidal Intention: No Insight: Fair Judgment: Impulsive Results Vitals/IOs Vital Signs Date Time Temp Pulse Resp B/P (MAP) Pulse Ox O2 Delivery O2 Flow Rate FiO2 12/20/17 06:01 97.8 69 16 101/52 (68) 96 Intake and Output 12/20/17 12/20/17 12/21/17 08:00 16:00 00:00 Intake Total 720 ml Balance 720 ml Assessment & Plan Problem List: (1) Adjustment disorder with mixed anxiety and depressed mood ICD Codes: F43.23 - Adjustment disorder with mixed anxiety and depressed mood Status: Acute Assessment & Plan Patient this time with improved sleep with current treatment regimen, mood also improving but continues report feeling depressed and anxious due to worry about the prognosis of her current ongoing headaches. We will discontinue lorazepam and start hydroxyzine 50 mg p.o. every 6 hours as needed for anxiety. Continue current treatment. Continue monitor mood and behavior. Patient continues medical follow-up, continue recommendations as her prior medical team. Discharge planning in progress. Justification for Cont. Inpt. At risk for further decompensation if at lower level of care. Discharge Planning Patient return back to her residence was psychiatrically stable. Jared Wong MD December 20, 2017 09:57
[2017-12-20] MEDS: METOCLOPRAMIDE HCL 10 MG TAB PO SCH ×2 (09:59→20:58)
[2017-12-20] MEDS: KETOROLAC TROMETHAMINE 10 MG TAB PO SCH ×3 (10:00→18:00)
[2017-12-20] MEDS: hydrOXYzine HCL 50 MG TAB PO PRN (13:40)
--- NOTE | 2017-12-20 15:07 | PD.TTN ---
Patient Problems 1. Discharge planning 2. Medication compliance 3. Knowledge deficit 4. Lack of coping skills Progress Toward Goals Provider Present: Dr. Lilly Wong Provider Input: Dr. Wong had his treatment team meeting to discuss patient's discharge, medication, and treatment. Patient has been no behavior problem. Possible discharge tomorrow. Patient denies suicidal and homicidal ideation Nurse(s) Input: Patient is labile, denies suicidal and homicidal ideation. Patient is pleasant and cooperative Psychiatric Counselors Present: Grisel Vásquez [facility] Psych Therapist Input: Patient presents labile, cooperative, tearful, depressed, affect labile. Patient's speech was clear, organized, with pressure. Patient denies suicidal and homicidal ideation. Patient reports eating and sleeping better. Group Spec/RT/OT/SCHULTE Present: Subhash Lam OT Group Spec/RT/OT/SCHULTE Input: Patient does participate in groups Grisel Vásquez [facility] December 20, 2017 15:07
[2017-12-20] MEDS: SUMAtriptan SUCCINATE 25 MG TAB PO PRN (15:44)
[2017-12-20 18:00] VITALS: BP 126/67; PULSE 70; RESP 17; TEMP 97.6; O2SAT 98
[2017-12-20] MEDS: QUEtiapine FUMARATE 100 MG TAB PO SCH (20:58)
[2017-12-20] MEDS: TEMAZEPAM 7.5 MG CAP PO SCH (20:58)
[2017-12-20] MEDS: TOPIRAMATE 100 MG TAB PO SCH (21:04)
[2017-12-21] MEDS: hydrOXYzine HCL 50 MG TAB PO PRN (04:59)
[2017-12-21 05:04] VITALS: BP 115/59; PULSE 61; RESP 15; TEMP 97.8; O2SAT 98
[2017-12-21] MEDS ORDERED: TOPI25 PO (09:44)
[2017-12-21] MEDS ORDERED: TOPI100 PO (09:44)
[2017-12-21] MEDS ORDERED: TEMA7.5C9 PO (09:44)
[2017-12-21] MEDS ORDERED: METO10TA PO (09:44)
[2017-12-21] MEDS ORDERED: DIVA250ER PO (09:44)
[2017-12-21] MEDS ORDERED: CYCL5TAB PO (09:44)
[2017-12-21] MEDS ORDERED: QUET1TAB8 PO (09:44)
[2017-12-21] MEDS ORDERED: KETO10 PO (09:44)
[2017-12-21] MEDS ORDERED: HYDR50TA94 PO (09:44)
--- NOTE | 2017-12-21 09:50 | HHI.DS ---
Psychiatry Discharge Summary Inpatient Psychiatric care?: Yes Advance Directive: No Reason Not Provided: Due to Patient Condition Mental Health AdvanceDirective: No Health Care Proxy: No Admission Admission Date Dec 13, 2017 at 18:03 Admission Diagnosis: (1) Adjustment disorder with mixed anxiety and depressed mood ICD Code: F43.23 - Adjustment disorder with mixed anxiety and depressed mood Brief History Patient is a 42-year-old woman, , no children, unemployed, with no formal past psychiatric history, no previous diagnoses, no previous psychiatric admissions, no previous suicide attempts or self-injurious behavior , with a past medical history significant for irretractable migraines was brought into the ED due to continuous headaches for the past several weeks and had endorse suicide ideations to her primary care doctor due to continuous pain from her headaches which patient was put under Hylton act and admitted to the inpatient psychiatry for further evaluation and management. Patient was found lying on bed noted B, cooperative. Patient states that she had been having irretractable headaches since October of this year. Patient reports having had ophthalmic migraines for the past 8-10 years but the headache started in October. Patient reports having had imaging done (MRI was (which she was told was normal. Patient also mentions having had insomnia beginning around the same time along with increased anxiety due to sleep disturbance. Patient reports having been on Ambien, trazodone, diazepam which has had marginal results or intolerable side effects which is hallucinations when she took trazodone. Patient reports having had episodes of decrease sleep for as long as 3 days, mood being "very bad" feeling depressed due to the same and having had suicide ideations for the past 3 days which occur mostly at night. Patient also reports episode of depersonalization where she did not recognize himself in the mirror and also had episodes of auditory hallucinations at times which she heard singing. Patient at this time continues to endorse feeling depressed, having suicide ideations currently denying any auditory hallucinations at time of interview or delusions. Past psychiatric history: No previous psychiatric diagnoses, no psychiatric admissions, no previous suicide attempt or self-injurious behavior. No previous mental health provider services other than brief course of therapy. Substance use history: Denies Past medical history: Patient reports history of retractable migraines since October 2017. 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 Patient's collateral contacts patient's Jesse Valiente [phone]. Tobacco Use In Past 30 Days: No Tobacco Past 30 Days Alcohol Use: Monthly or Less Hospital Course Patient is a 42-year-old woman, , no children, unemployed, with no formal past psychiatric history, no previous diagnoses, no previous psychiatric admissions, no previous suicide attempts or self-injurious behavior , with a past medical history significant for irretractable migraines was brought into the ED due to continuous headaches for the past several weeks and had endorse suicide ideations to her primary care doctor due to continuous pain from her headaches which patient was put under Hylton act and admitted to the inpatient psychiatry for further evaluation and management. Patient was started on quetiapine and titrated up to 150mg PO HS, along with temazepam 15 mg at bedtime and hydroxyzine 50mg every six hours as needed for anxiety which she tolerated well, with no noted side effects. Patient continued with headaches but improved with medical management from primary medical team and neurology. Patient continued to endorse feeling depressed initially but began to improve with treatment and denied any further suicidal ideations during hospitalization. Patient was adherent to medication regimen and recommendations as per primary medical, cooperative with staff and participated in groups. Upon discharge patient stated feeling ok, with plan to return back home with ; noted to be calm and cooperative with staff. Patient agreed to continuing recommendations, treatment and attend outpatient follow up appointments for continuity of care. Patient; denies SI, HI, AVH or delusions. Supportive psychotherapy provided. Suicide and violence risk assessment on day of discharge both suggest lower imminent risk, and the patient's level of function is adequate for planned level of outpatient care. Patient has maximized benefit from this inpatient psychiatric hospital stay and to return to psychiatric emergency room for any concerning psychiatric symptoms. Patient agrees with plan. Results Blood Pressure 115 / 59 Vital Signs Date Time Temp Pulse Resp B/P (MAP) Pulse Ox O2 Delivery O2 Flow Rate FiO2 12/21/17 05:04 97.8 61 15 115/59 (77) 98 Laboratory Results Test 12/13/17 16:09 Hemoglobin A1c 5.1 % (4.3-6.0) Summary of Procedures none Imaging Last Impressions Head/Brain Mag Res Venography 12/14/17 0000 Signed Impressions: Service Date/Time: Thursday, December 14, 2017 15:28 - CONCLUSION: 1. Unremarkable MR venogram examination. No evidence for significant venous thrombosis. Abram Carolina MD Head Magnetic Resonance Angiography 12/14/17 0000 Signed Impressions: Service Date/Time: Thursday, December 14, 2017 15:28 - CONCLUSION: 1. 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 2. Otherwise, unremarkable MRA examination of the brain. Abram Carolina MD Pending results at discharge: No Medications # of Antipsychotic meds at D/C: 1 Approp Antipsych med options 1 - Minimum of three failed multiple trials of monotherapy. 2 - Documented plan to taper to monotherapy due to previous use of multiple meds OR cross-taper in progress at D/C. 3 - Documentation of augmentation of Clozapine. 4 - Justification other than those listed in allowable values 1-3, document here : Discharge Discharge Date: December 21, 2017 Discharge Diagnosis: (1) Adjustment disorder with mixed anxiety and depressed mood ICD Code: F43.23 - Adjustment disorder with mixed anxiety and depressed mood Status: Acute Pt Condition on Discharge: Stable Discharge Disposition: Discharge Home Discharge Instructions Diet Instructions: As Tolerated, No Restrictions Activities you can perform: Regular-No Restrictions Discharge Time > 30 minutes Mental Status Examination Appearance: Appropriate Consciousness: Alert Orientation: x4 Speech: Unremarkable Language: Adequate Fund of Knowledge: Adequate Attention and Concentration: Adequate Memory: Unremarkable Mood: Appropriate Affect: Appropriate Thought Process & Associations: Intact, Logical, Linear Thought Content: Appropriate Hallucination Type: None Delusion Type: None Suicidal Ideation: No Suicidal Plan: No Suicidal Intention: No Homicidal Ideation: No Homicidal Plan: No Homicidal Intention: No Insight: Adequate Judgment: Adequate Discharge/Advance Care Plan Health Problems: (1) Adjustment disorder with mixed anxiety and depressed mood Goals to promote your health * To prevent worsening of your condition and complications * To maintain your health at the optimal level Directions to meet your goals Take your medications as prescribed Follow your dietary instruction Follow activity as directed Keep your appointments as scheduled Take your immunizations and boosters as scheduled If your symptoms worsen call your PCP, if no PCP go to Urgent Care Center or Emergency Room For 08/03 questions related to your inpatient stay or results of tests pending at discharge, please contact Dr. Jared Wong at Smoking is Dangerous to Your Health. Avoid second hand smoking Jared Wong MD December 21, 2017 09:50
[2017-12-21] MEDS: DIVALPROEX SODIUM E.R. 250 MG TAB PO SCH (10:17)
[2017-12-21] MEDS: CYCLOBENZAPRINE HCL 10 MG TAB PO SCH (10:17)
[2017-12-21] MEDS: TOPIRAMATE 25 MG TAB PO SCH (10:24)
[2017-12-21] MEDS: METOCLOPRAMIDE HCL 10 MG TAB PO SCH (10:24)
[2017-12-21] MEDS: KETOROLAC TROMETHAMINE 10 MG TAB PO SCH ×2 (10:24→13:43)
== END 2017-12-21 14:00 | disposition home or self-care (01) | DRG 882 ==
LOC: NEPE 15:10 → NEDA 18:03 → H4EA 19:50
PROVIDERS: ADMIT Student in an Organized Health Care Education/Training Program; ATTEND Student in an Organized Health Care Education/Training Program
DX: F43.23 Adjustment disorder with mixed anxiety and depressed mood (principal); R45.851 Suicidal ideations; G43.519 Persistent migraine aura without cerebral infarction, intractable, without status migrainosus; G47.00 Insomnia, unspecified; M25.532 Pain in left wrist; Z87.891 Personal history of nicotine dependence; Z88.5 Allergy status to narcotic agent; Z91.040 Latex allergy status
CPT/HCPCS: 70544; 70546; 80048; 82607; 82746; 83036; 83735; 84207; 84425; 84443; 84703; 85025; 85652; 86140; 96374; 96375; 96376; 99152; A9579; J1170; J2405; J3030